=== PATIENT | female | born 1975 | race Hispanic/Latino ===

== ENCOUNTER 2016-08-02 21:24 | Emergency (ER) | payer SELFPAY ==
[2016-08-02 21:24] VITALS: BMI 33.1
[2016-08-02 21:55] VITALS: RESP 16; O2SAT 96
[2016-08-02] MEDS ORDERED: Sodium Chloride 0.9% 1,000 ML IV ONE (22:19)
[2016-08-02] MEDS ORDERED: Sodium Chloride 0.9% 1,000 ML ONE (22:28)
[2016-08-02 22:54] LABS: RBC URINE 1 /hpf (0-3); URINE BILIRUBIN NEGATIVE (NEGATIVE); URINE BLOOD NEGATIVE (NEGATIVE); URINE COLOR Yellow (YELLOW); URINE GLUCOSE (UA) NORMAL (Normal); URINE KETONE NEGATIVE (NEGATIVE); URINE LEUKOCYTE ESTERASE NEG Leu/uL (Negative); URINE PROTEIN NEGATIVE (NEGATIVE); URINE UROBILINOGEN NORMAL mg/dL (0.2-1.0); WBC URINE 1 /hpf (0-5)
[2016-08-02 22:57] LABS: BASO # 0.1 K/uL (0.0-0.2); BASO % 0.7 % (0.0-2.0); EOS # 0.5 K/uL (0.0-0.7); EOS % 4.4 % (0.0-4.0); HEMATOCRIT 38.4 % (34.0-47.0); LYMPH # 3.4 K/uL (1.0-4.3); MEAN CELL VOLUME 84.3 fL (81.0-99.0); MEAN CORPUSCULAR HEMOGLOBIN 27.4 pg (27.0-31.0); MEAN CORPUSCULAR HGB CONC 32.5 g/dL (33.0-37.0); MEAN PLATELET VOLUME 8.5 fL (7.2-11.7); MONO # 0.9 K/uL (0.0-0.8); MONO % 8.2 % (0.0-10.0); NRBC % 0.1 % (0.0-2.0); RED CELL DISTRIBUTION WIDTH 14.5 % (11.5-14.5); WHITE BLOOD COUNT 11.1 K/uL (4.8-10.8)
[2016-08-02 23:01] LABS: CHLORIDE 99 mmol/L (98-107); POTASSIUM 3.6 mmol/L (3.6-5.2); SODIUM 138 mmol/L (132-148)
[2016-08-02 23:04] LABS: ALB/GLOB RATIO 1.4 (1.0-2.1); ALKALINE PHOSPHATASE 78 U/L (38-126); ALT/SGPT 36 U/L (9-52); AST/SGOT 31 U/L (14-36); BILIRUBIN,TOTAL 0.5 mg/dL (0.2-1.3); BLOOD UREA NITROGEN 16 mg/dL (7-17); CALCIUM 8.2 mg/dl (8.6-10.4); CARBON DIOXIDE 29 mmol/L (22-30); GFR AFRICAN-AMERICAN > 60; GLUCOSE,RANDOM 86 mg/dL (65-105); TOTAL PROTEIN 6.8 g/dL (6.3-8.3)
[2016-08-02] MEDS ORDERED: Iodixanol 320 MG/ML 100 ML BOTTLE IV ONE (23:22)
--- NOTE | 2016-08-02 23:52 | C.PDOC ---
History Of Present Illness 41 y/o female presents to the ED with complains of abdominal cramping with alternating constipation and diarrhea x 3 weeks. Pt denies history of bowel disease but with "history of ulcers." Pt has been taking Pepto Bismol, Immodium and Alkaseltzer with little relief. Pt also reports occasional bright red blood per rectum. + weight gain since cosmetic abdominoplasty approx 18 mo ago. Denies vomiting, fever, chills, chest pain or any other complaints. Time Seen by Provider: 08/02/16 22:08 Chief Complaint (Nursing): Abdominal Pain History Per: Patient History/Exam Limitations: no limitations Onset/Duration Of Symptoms: Days, Intermittent Episodes Current Symptoms Are (Timing): Still Present Severity: Moderate Location Of Pain/Discomfort: Diffuse Radiation Of Pain To:: None Quality Of Discomfort: Cramping Associated Symptoms: Diarrhea, Constipation. denies: Fever, Chills, Nausea, Vomiting, Chest Pain Exacerbating Factors: None Alleviating Factors: None Recent travel outside of the [place]: No Past Medical History Reviewed: Historical Data, Nursing Documentation, Vital Signs Vital Signs: Last Vital Signs Temp 97.8 F 08/03/16 00:21 Pulse 68 08/03/16 00:21 Resp 16 08/03/16 00:21 BP 109/66 08/03/16 00:21 Pulse Ox 96 08/03/16 00:33 Surgical History: Tonsillectomy - [facility] Procedures INJECT/INFUSE ELECTROLYT (05/13/13) INJECT/INFUSE NEC (05/13/13) LAPAROSCOP APPENDECTOMY (04/01/00) LAPAROSCOP LYSIS-PERITONEAL ADHES (04/01/00) OTH LAPAROSCOP LOCAL EXCIS/DESTRUCT OVARY (04/01/00) Family History: States: Unknown Family Hx - Social History Hx Tobacco Use: No Hx Alcohol Use: Yes Hx Substance Use: No - Immunization History Hx Tetanus Toxoid Vaccination: No Hx Influenza Vaccination: No Hx Pneumococcal Vaccination: No Review Of Systems Except As Marked, All Systems Reviewed And Found Negative. Constitutional: Negative for: Fever, Chills Cardiovascular: Negative for: Chest Pain Gastrointestinal: Positive for: Abdominal Pain, Diarrhea, Constipation. Negative for: Nausea, Vomiting Physical Exam - Physical Exam Appears: Non-toxic, No Acute Distress, Other (obese) Skin: Warm, Dry, No Rash Head: Atraumatic, Normacephalic Neck: Normal, Normal ROM, Supple Chest: Symmetrical Cardiovascular: Rhythm Regular, No Murmur Respiratory: Normal Breath Sounds, No Rales, No Rhonchi, No Wheezing Gastrointestinal/Abdominal: Soft, Tenderness (minimal diffuse tenderness), No Guarding, No Rebound Rectal: Other (Chaperoned by JERRICA Mcnulty. No external hemorrhoids. Small internal hemorrhoid, nonbleeding.) Extremity: Bilateral: Atraumatic Neurological/Psych: Oriented x3, Normal Speech ED Course And Treatment - Laboratory Results Result Diagrams: 08/02/16 22:43 08/02/16 22:43 O2 Sat by Pulse Oximetry: 96 (room air) Pulse Ox Interpretation: Normal (f) Medical Decision Making Medical Decision Making: mild enteritis may be related to prolonged constipation and agressive alternating laxative and binding agents taken (Imodium and Mireya Randall) LOW susp of infectuous enteritis with no h/o travel nor fever nor diarrhea. Disposition Doctor Will See Patient In The: Office Counseled Patient/Family Regarding: Studies Performed, Diagnosis - Disposition Referrals: Gemma Rosario DO [Staff Provider] - Mikey Bunn MD [Staff Provider] - Disposition: HOME/ ROUTINE Disposition Time: 00:15 Condition: GOOD Additional Instructions: drink a bottle of mag citrate now (laxative) and re-evalute your abdominal discomfort after using the bathroom 2-3 times. continue colace 100 mg twice a day, stool softener, to help prevent constipation Motrin 600 mg every 6 hours as needed for local pain pepcid 20 mg @ night to prevent stomach irritation from the motrin follow-up with your PMD or our Free outpatient Clinic. Consider Principal Technical Architect Consult. Prescriptions: Docusate [Colace] 100 mg PO BID #60 cap Magnesium Citrate [Good [facility] Magnesium Citrate] 300 ml PO ONCE PRN #1 bottle PRN Reason: Constipation Instructions: Constipation (ED), Enteritis (ED) - Clinical Impression Clinical Impression: Abdominal pain, Constipation - Scribe Statement The provider has reviewed the documentation as recorded by the Erick Chaves Provider Attestation: All medical record entries made by the Jonathanibhoang were at my direction and personally dictated by me. I have reviewed the chart and agree that the record accurately reflects my personal performance of the history, physical exam, medical decision making, and the department course for this patient. I have also personally directed, reviewed, and agree with the discharge instructions and disposition.
--- NOTE | 2016-08-03 00:02 | CT ---
EXAM: CT Abdomen and Pelvis With Intravenous Contrast CLINICAL HISTORY: 41 years old, female; Pain; Abdominal pain; Flank; Left lower quadrant (llq); Additional info: ? Diverticulitis vs colitis TECHNIQUE: Axial computed tomography images of the abdomen and pelvis with intravenous contrast. This CT exam was performed using one or more of the following dose reduction techniques: automated exposure control, adjustment of the mA and/or kV according to patient size, and/or use of iterative reconstruction technique. Coronal and sagittal reformatted images were created and reviewed. CONTRAST: 100 mL of VISIPAQUE 320 administered intravenously. COMPARISON: No relevant prior studies available. FINDINGS: Limitations: Motion artifact - mild. Lower thorax: Minimal atelectasis. ABDOMEN: Liver: Few too small to characterize lesions. Gallbladder and bile ducts: No calcified stones. No ductal dilation. Pancreas: No ductal dilation. No mass. Spleen: No splenomegaly. Adrenals: No mass. Kidneys and ureters: Few probable renal cysts. No hydronephrosis. Stomach and bowel: Apparent mild mural thickening of few jejunal loops. No associated inflammatory stranding. No obstruction. Appendix: No findings to suggest acute appendicitis. PELVIS: Bladder: Unremarkable. Reproductive: Hysterectomy. Small RIGHT ovarian follicles. ABDOMEN and PELVIS: Intraperitoneal space: No significant fluid collection. No free air. Bones/joints: No acute fracture. Soft tissues: Mild linear stranding within lower anterior abdominal wall. Vasculature: Unremarkable. No abdominal aortic aneurysm. Lymph nodes: Multiple subcentimeter short axis mesenteric lymph nodes, nonspecific. IMPRESSION: 1. Possible mild enteritis. Clinical correlation is needed. 2. Incidental/non-acute findings are described above.
--- NOTE | 2016-08-03 00:05 | C.PDOC ---
Time Seen by Provider: 08/02/16 22:08 Chief Complaint (Nursing): Abdominal Pain Past Medical History Vital Signs: Last Vital Signs Temp 97.8 F 08/03/16 00:21 Pulse 68 08/03/16 00:21 Resp 16 08/03/16 00:21 BP 109/66 08/03/16 00:21 Pulse Ox 96 08/03/16 00:35 - Medical History PMH: Denies: Depression, Chronic Kidney Disease Surgical History: Tonsillectomy - [facility] Procedures INJECT/INFUSE ELECTROLYT (05/13/13) INJECT/INFUSE NEC (05/13/13) LAPAROSCOP APPENDECTOMY (04/01/00) LAPAROSCOP LYSIS-PERITONEAL ADHES (04/01/00) OTH LAPAROSCOP LOCAL EXCIS/DESTRUCT OVARY (04/01/00) - Social History Hx Tobacco Use: No Hx Alcohol Use: Yes Hx Substance Use: No - Immunization History Hx Tetanus Toxoid Vaccination: No Hx Influenza Vaccination: No Hx Pneumococcal Vaccination: No ED Course And Treatment - Laboratory Results Result Diagrams: 08/02/16 22:43 08/02/16 22:43 Lab Interpretation: Normal (mild leukocytosis, occult stool blood neg, ua neg.) Urine POC: Negative O2 Sat by Pulse Oximetry: 96 Reevaluation Time: 00:05 Reassessment Condition: Improved Medical Decision Making Medical Decision Making: mild eneritis constipation Disposition Doctor Will See Patient In The: Office Counseled Patient/Family Regarding: Studies Performed, Diagnosis - Disposition Referrals: Gemma Rosario DO [Staff Provider] - Mikey Bunn MD [Staff Provider] - Disposition: HOME/ ROUTINE Disposition Time: 00:06 Condition: GOOD Additional Instructions: drink a bottle of mag citrate now (laxative) and re-evalute your abdominal discomfort after using the bathroom 2-3 times. continue colace 100 mg twice a day, stool softener, to help prevent constipation Motrin 600 mg every 6 hours as needed for local pain pepcid 20 mg @ night to prevent stomach irritation from the motrin follow-up with your PMD or our Free outpatient Clinic. Consider Senior Patrol Agent Consult. Prescriptions: Docusate [Colace] 100 mg PO BID #60 cap Magnesium Citrate [[facility] Magnesium Citrate] 300 ml PO ONCE PRN #1 bottle PRN Reason: Constipation Instructions: Constipation (ED), Enteritis (ED) - Clinical Impression Clinical Impression: Abdominal pain, Constipation
[2016-08-03 00:21] VITALS: BP 109/66; PULSE 68; TEMP 97.8
--- NOTE | 2016-08-03 11:20 | RAD ---
HISTORY: abd pain COMPARISON: No prior. FINDINGS: BOWEL: Transverse and right colonic stool retention No obstruction. No free air. BONES: Normal. OTHER FINDINGS: Left cara pelvic phleboliths IMPRESSION: Stool retention. Otherwise negative
== END 2016-08-03 00:21 | disposition home or self-care (01) ==
LOC: C.ER 21:24
DX: K59.00 Constipation, unspecified (principal); R10.9 Unspecified abdominal pain
CPT/HCPCS: 74000; 74177; 80053; 81001; 83690; 84703; 85025; 96361; 96374; 96375; 99283; G0328; G0480; J1885; J2405; J7040; Q9967